=== PATIENT | male | born 1980 | race Two or more races ===

== ENCOUNTER 2023-04-07 01:40 | Emergency (ER) | payer MEDICAID ==
[~2023-04-07] VITALS: Ht 177.8 cm; Wt 61.0 kg
[2023-04-07 01:45] VITALS: TEMP 98.1
[2023-04-07] MEDS ORDERED: IOHEXOL 350 MG/ML 100 ML VIAL ONE (01:58)
[2023-04-07] MEDS ORDERED: SODIUM CHLORIDE 0.9% 100 ML ONE (01:58)
[2023-04-07] MEDS ORDERED: LABETALOL HCL 5 MG/ML 20 ML VIAL IVP PRN ×2 (02:00)
[2023-04-07 02:12] LABS: BASOPHILS % (AUTO) 0.9 % (0.0-2.0); EOSINOPHILS % (AUTO) 0.9 % (1.0-6.0); HEMATOCRIT 45.7 % (41-53); HEMOGLOBIN 15.9 g/dL (13.5-17.5); LYMPHOCYTES # (AUTO) 4.1 K/uL (1.0-4.8); LYMPHOCYTES % (AUTO) 50.6 % (22.0-44.0); MEAN CORPUSCULAR HEMOGLOBIN 34.2 pg (26.0-34.0); MEAN CORPUSCULAR HGB CONC 34.8 G/dL (31.0-37.0); MEAN CORPUSCULAR VOLUME 98 fL (80-100); MONOCYTES # (AUTO) 1.3 K/uL (0.1-1.0); MONOCYTES % (AUTO) 16.6 % (2.0-9.0); NEUTROPHILS # (AUTO) 2.5 K/uL (1.8-7.7); PLATELET COUNT (AUTO) 219 K/uL (150-450); RED BLOOD CELL COUNT(AUTO) 4.65 MIL/uL (4.50-5.90); RED CELL DISTRIBUTION WIDTH 12.6 % (11.5-14.5)
[2023-04-07 02:23] LABS: CALCIUM, TOTAL 8.7 mg/dL (8.8-10.5); CARBON DIOXIDE 27 mmol/L (22-29); CHLORIDE 100 mmol/L (98-107); CREATININE 0.63 mg/dL (0.60-1.30); GLOMERULAR FILTR. RATE CALC > 60 mL/min (>60); GLUCOSE,RANDOM 120 mg/dL (70-110); POTASSIUM 3.6 mmol/L (3.5-5.1); UREA NITROGEN, BLOOD 2 mg/dL (7-18)
[2023-04-07 02:24] LABS: PROTHROMBIN TIME 10.7 SEC (9.4-11.6)
[2023-04-07 02:29] LABS: ALANINE AMINOTRANSFERASE 66 U/L (12-78); ALBUMIN 3.5 g/dL (3.4-5.0); ALKALINE PHOSPHATASE 115 U/L (46-116); ANION GAP 17 mmol/L (8-16); ASPARTATE AMINOTRANSFERASE 100 U/L (15-37); BILIRUBIN,TOTAL 0.5 mg/dL (0.1-1.0); LIPASE 80 U/L (16-77); SODIUM SERUM 144 mmol/L (136-145); TOTAL PROTEIN, SERUM 7.3 g/dL (6.4-8.2)
[2023-04-07 02:31] LABS: TROPONIN I-HIGH SENSITIVITY 6 ng/L (<76)
[2023-04-07 02:35] LABS: ALCOHOL, BLOOD (SERUM) 355 mg/dL (0-10)
[2023-04-07 02:39] VITALS: BP 137/92; PULSE 73; RESP 16
[2023-04-07 04:10] LABS: APPEARANCE,URINE CLEAR (CLEAR); BILIRUBIN,URINE NEGATIVE (NEGATIVE); COLOR,URINE COLORLESS (YELLOW); GLUCOSE, URINE (UA) NEGATIVE (NEGATIVE); KETONES,URINE NEGATIVE (NEGATIVE); LEUKOCYTE ESTERASE ,URINE NEGATIVE (NEGATIVE); NITRATE,URINE NEGATIVE (NEGATIVE); OCCULT BLOOD,URINE NEGATIVE (NEGATIVE); PH,URINE 6.5 (5.0-8.0); PROTEIN,URINE NEGATIVE (NEGATIVE); SPECIFIC GRAVITIY, URINE 1.036 (1.003-1.030); UROBILINOGEN,URINE <=1.0 mg/dL (<=1.0)
[2023-04-07 04:11] LABS: PH,URINE DRUG SCREEN 6.5 (5.0-8.0)
[2023-04-07 04:17] LABS: AMPHET/METH SCREEN,URINE NEGATIVE (NEGATIVE); BARBITURATE SCREEN, URINE NEGATIVE (NEGATIVE); BENZODIAZEPINES SCREEN,URINE NEGATIVE (NEGATIVE); CANNABINOID SCREEN,URINE NEGATIVE (NEGATIVE); COCAINE SCREEN,URINE NEGATIVE (NEGATIVE); METHADONE SCREEN, URINE NEGATIVE (NEGATIVE); OPIATE SCREEN,URINE NEGATIVE (NEGATIVE); PHENCYCLIDINE SCREEN,URINE NEGATIVE (NEGATIVE)
[2023-04-07 04:23] LABS: BACTERIA,URINE None Seen /HPF (None Seen); RBC,URINE None Seen /HPF (0-2); SQUAMOUS EPITHELIAL CELL,UR None Seen /LPF (None Seen); WBC,URINE None Seen /HPF (0-5)
[2023-04-07 04:24] LABS: ALCOHOL, URINE DRUG SCREEN POSITIVE (NEGATIVE)
== END 2023-04-07 04:30 | disposition left against medical advice (07) ==
LOC: EMS 01:40
DX: K70.30 Alcoholic cirrhosis of liver without ascites (principal); F10.229 Alcohol dependence with intoxication, unspecified; R20.2 Paresthesia of skin; R20.0 Anesthesia of skin; F17.210 Nicotine dependence, cigarettes, uncomplicated; Y90.9 Presence of alcohol in blood, level not specified
CPT/HCPCS: 99285; 70496; 71045; 80053; 81001; 83690; 84484; 85025; 85610; 36415; 70498; 82948; 93005; 80307; 70450; Q9967; J7050; G0480

== ENCOUNTER 2024-10-02 14:24 | Inpatient (IN) | payer MEDICAID, OTHER ==
[~2024-10-02] VITALS: Ht 175.3 cm; Wt 70.0 kg
[2024-10-02] MEDS ORDERED: 0.9% SODIUM CHLORIDE 10 ML SYRINGE IVP PRN (14:45)
[2024-10-02 14:50] LABS: COVID AG,FIA SOURCE NASAL SWAB
[2024-10-02] MEDS: ONDANSETRON HCL 4 MG/2 ML VIAL IVP ONE (15:02)
[2024-10-02] MEDS: ACETAMINOPHEN 1000 MG/ISO-OSM 100 ML IV ONE (15:03)
[2024-10-02] MEDS: SODIUM CHLORIDE 0.9% 2,050 ML IV ONE (15:03)
[2024-10-02 15:05] LABS: BASOPHILS % (AUTO) 0.4 % (0.0-2.0); EOSINOPHILS % (AUTO) 0.1 % (1.0-6.0); HEMOGLOBIN 13.9 g/dL (13.5-17.5); LYMPHOCYTES # (AUTO) 1.1 K/uL (1.0-4.8); LYMPHOCYTES % (AUTO) 3.9 % (22.0-44.0); MEAN CORPUSCULAR HGB CONC 33.9 G/dL (31.0-37.0); MEAN CORPUSCULAR VOLUME 89 fL (80-100); MONOCYTES # (AUTO) 2.7 K/uL (0.1-1.0); MONOCYTES % (AUTO) 9.3 % (2.0-9.0); PLATELET COUNT (AUTO) 294 K/uL (150-450); RED BLOOD CELL COUNT(AUTO) 4.63 MIL/uL (4.50-5.90); RED CELL DISTRIBUTION WIDTH 13.2 % (11.5-14.5)
[2024-10-02 15:12] LABS: NEUTROPHILS % (AUTO) 86.3 % (40.0-70.0)
[2024-10-02 15:19] LABS: ANION GAP 9 mmol/L (8-16); CALCIUM, TOTAL 8.9 mg/dL (8.8-10.5); CARBON DIOXIDE 25 mmol/L (22-29); CHLORIDE 101 mmol/L (98-107); CREATININE 1.23 mg/dL (0.60-1.30); GLOMERULAR FILTR. RATE CALC > 60 mL/min (>60); GLUCOSE,RANDOM 119 mg/dL (70-110); POTASSIUM 3.8 mmol/L (3.5-5.1); SODIUM SERUM 135 mmol/L (136-145); UREA NITROGEN, BLOOD 7 mg/dL (7-18)
[2024-10-02 15:20] LABS: LIPASE 15 U/L (16-77)
[2024-10-02 15:21] LABS: ALBUMIN 2.9 g/dL (3.4-5.0); BILIRUBIN,DIRECT 0.3 mg/dL (0.00-0.20); BILIRUBIN,TOTAL 0.9 mg/dL (0.1-1.0); PROTHROMBIN TIME 11.3 SEC (9.4-11.6); TOTAL PROTEIN, SERUM 6.9 g/dL (6.4-8.2)
[2024-10-02 15:29] LABS: LACTIC ACID 1.5 mmol/L (0.4-2.0); RBC MORPHOLOGY COMMENT NORMAL RBC MORPH
[2024-10-02 15:35] LABS: INFLUENZA TYPE A NEGATIVE FOR TYPE A (NEGATIVE); INFLUENZA TYPE B NEGATIVE FOR TYPE B (NEGATIVE); SARS-COV2 (COVID) ANTIGEN,FIA Negative (Negative)
[2024-10-02] MEDS: CefTRIAXone 1 GM/DEXTROSE 50 ML IV ONE (15:48)
[2024-10-02 16:08] LABS: APPEARANCE,URINE HAZY (CLEAR); BILIRUBIN,URINE NEGATIVE (NEGATIVE); COLOR,URINE LIGHT ORANGE (YELLOW); GLUCOSE, URINE (UA) NEGATIVE (NEGATIVE); KETONES,URINE NEGATIVE (NEGATIVE); LEUKOCYTE ESTERASE ,URINE MODERATE (NEGATIVE); NITRATE,URINE NEGATIVE (NEGATIVE); OCCULT BLOOD,URINE TRACE (NEGATIVE); PH,URINE 5.5 (5.0-8.0); PROTEIN,URINE 30-70 mg/dL (NEGATIVE); SPECIFIC GRAVITIY, URINE 1.015 (1.003-1.030); UROBILINOGEN,URINE <=1.0 mg/dL (<=1.0)
[2024-10-02 16:16] LABS: BACTERIA,URINE Many /HPF (None Seen); SQUAMOUS EPITHELIAL CELL,UR Rare /LPF (None Seen); WBC,URINE 26-50 /HPF (0-5)
[2024-10-02] MEDS ORDERED: BISACODYL 10 MG RECTAL RECTAL SUPPOSITORY PR PRN (17:00)
[2024-10-02] MEDS ORDERED: MAGNESIUM HYDROXIDE SUSPENSION 30 ML UDCUP PO PRN (17:00)
[2024-10-02] MEDS ORDERED: ZOLPIDEM TARTRATE 5 MG TABLET PO PRN (17:00)
[2024-10-02] MEDS: *CLINICAL-LEVOFLOXACIN IVPB DOSING CLINICAL ONE (17:18)
[2024-10-02] MEDS: SODIUM CHLORIDE 0.9% 1,000 ML IV ONE (17:38)
[2024-10-02] MEDS: ACETAMINOPHEN 325 MG TABLET PO PRN (19:09)
[2024-10-02] MEDS: LEVOFLOXACIN 750 MG/D5% WATER 150 ML IV SCH (20:19)
[2024-10-02] MEDS: DOCUSATE SODIUM 100 MG CAPSULE PO SCH (20:38)
[2024-10-02] MEDS: MORPHINE SULFATE 2 MG/ML SYRINGE IVP PRN (21:37)
[2024-10-02] MEDS: HEPARIN SODIUM,PORCINE 5,000 UNITS/ML VIAL SQ SCH (23:06)
[2024-10-03] VITALS (8 sets, daily range): BP systolic 106–120; BP diastolic 64–79; PULSE 90–108; RESP 18–19; TEMP 98.8–102.8; O2SAT 95–98
[2024-10-03] MEDS: HYDROCODONE/ACETAMINOPHEN 5-325 MG TABLET PO PRN (01:42)
[2024-10-03 07:20] LABS: HEMATOCRIT 37.6 % (41-53); HEMOGLOBIN 12.7 g/dL (13.5-17.5); MEAN CORPUSCULAR HEMOGLOBIN 30.1 pg (26.0-34.0); MEAN CORPUSCULAR HGB CONC 33.9 G/dL (31.0-37.0); MEAN CORPUSCULAR VOLUME 89 fL (80-100); PLATELET COUNT (AUTO) 255 K/uL (150-450); RED BLOOD CELL COUNT(AUTO) 4.23 MIL/uL (4.50-5.90); RED CELL DISTRIBUTION WIDTH 13.4 % (11.5-14.5)
[2024-10-03 07:46] LABS: ANION GAP 10 mmol/L (8-16); CALCIUM, TOTAL 8.3 mg/dL (8.8-10.5); CARBON DIOXIDE 23 mmol/L (22-29); CHLORIDE 101 mmol/L (98-107); CREATININE 1.19 mg/dL (0.60-1.30); GLOMERULAR FILTR. RATE CALC > 60 mL/min (>60); GLUCOSE,RANDOM 111 mg/dL (70-110); SODIUM SERUM 134 mmol/L (136-145); UREA NITROGEN, BLOOD 7 mg/dL (7-18)
[2024-10-03 08:12] LABS: BAND NEUTROPHILS % (MANUAL) 9 % (0-5); LYMPHOCYTES % (MANUAL) 25 % (22-44); MONOCYTES % (MANUAL) 5 % (2-9); RBC MORPHOLOGY COMMENT NORMAL RBC MORPH; SEGMENTED NEUTROPHILS % 61 % (40-70); TOTAL CELLS COUNTED 100
[2024-10-03] MEDS: PANTOPRAZOLE SODIUM 40 MG DR TABLET PO SCH (09:10)
[2024-10-03] MEDS: SODIUM CHLORIDE 0.9% 1,000 ML IV ONE (12:27)
[2024-10-03] MEDS: ONDANSETRON HCL 4 MG/2 ML VIAL IVP PRN (12:27)
[2024-10-03] MEDS: CefTRIAXone 1 GM/DEXTROSE 50 ML IV SCH (14:57)
[2024-10-04 00:54] VITALS: BP 104/67; PULSE 66; RESP 19; TEMP 97.7; O2SAT 96
[2024-10-04 05:24] VITALS: BP 133/82; PULSE 100; RESP 19; TEMP 98; O2SAT 95
[2024-10-04 06:56] LABS: BASOPHILS % (AUTO) 0.7 % (0.0-2.0); EOSINOPHILS % (AUTO) 0.7 % (1.0-6.0); HEMATOCRIT 40.2 % (41-53); HEMOGLOBIN 13.4 g/dL (13.5-17.5); LYMPHOCYTES # (AUTO) 2.5 K/uL (1.0-4.8); LYMPHOCYTES % (AUTO) 11.8 % (22.0-44.0); MEAN CORPUSCULAR HEMOGLOBIN 29.7 pg (26.0-34.0); MEAN CORPUSCULAR HGB CONC 33.2 G/dL (31.0-37.0); MEAN CORPUSCULAR VOLUME 89 fL (80-100); MONOCYTES # (AUTO) 1.9 K/uL (0.1-1.0); MONOCYTES % (AUTO) 8.7 % (2.0-9.0); NEUTROPHILS # (AUTO) 16.8 K/uL (1.8-7.7); NEUTROPHILS % (AUTO) 78.1 % (40.0-70.0); PLATELET COUNT (AUTO) 277 K/uL (150-450); RED CELL DISTRIBUTION WIDTH 13.7 % (11.5-14.5); WHITE BLOOD COUNT (AUTO) 21.4 K/uL (4.5-11.0)
[2024-10-04 07:01] LABS: ANION GAP 7 mmol/L (8-16); CALCIUM, TOTAL 8.9 mg/dL (8.8-10.5); CARBON DIOXIDE 26 mmol/L (22-29); CHLORIDE 104 mmol/L (98-107); CREATININE 1.14 mg/dL (0.60-1.30); GLOMERULAR FILTR. RATE CALC > 60 mL/min (>60); GLUCOSE,RANDOM 93 mg/dL (70-110); POTASSIUM 4.2 mmol/L (3.5-5.1); SODIUM SERUM 137 mmol/L (136-145); UREA NITROGEN, BLOOD 10 mg/dL (7-18)
[2024-10-04 08:45] VITALS: BP 145/88; PULSE 86; RESP 18; TEMP 98.5; O2SAT 96
[2024-10-04 11:20] VITALS: BP 124/69; PULSE 73; RESP 17; TEMP 98.5; O2SAT 96
[2024-10-04] MEDS ORDERED: SODIUM CHLORIDE 0.9% 500 ML IV ONE (13:13)
[2024-10-04 20:12] VITALS: BP 119/72; PULSE 55; RESP 18; TEMP 98.6; O2SAT 97
[2024-10-04] MEDS ORDERED: SODIUM CHLORIDE 0.9% 250 ML IV ONE (20:13)
[2024-10-05 04:19] VITALS: BP 142/73; PULSE 68; RESP 18; TEMP 100.1; O2SAT 96
[2024-10-05 06:54] VITALS: TEMP 98.5
[2024-10-05 07:37] LABS: ANION GAP 10 mmol/L (8-16); CALCIUM, TOTAL 8.9 mg/dL (8.8-10.5); CARBON DIOXIDE 25 mmol/L (22-29); CHLORIDE 102 mmol/L (98-107); CREATININE 1.02 mg/dL (0.60-1.30); GLOMERULAR FILTR. RATE CALC > 60 mL/min (>60); GLUCOSE,RANDOM 107 mg/dL (70-110); POTASSIUM 3.8 mmol/L (3.5-5.1); SODIUM SERUM 137 mmol/L (136-145); UREA NITROGEN, BLOOD 6 mg/dL (7-18)
[2024-10-05 07:46] LABS: EOSINOPHILS % (AUTO) 0.5 % (1.0-6.0); HEMATOCRIT 36.7 % (41-53); HEMOGLOBIN 12.6 g/dL (13.5-17.5); LYMPHOCYTES # (AUTO) 2.2 K/uL (1.0-4.8); LYMPHOCYTES % (AUTO) 13.7 % (22.0-44.0); MEAN CORPUSCULAR HEMOGLOBIN 30.2 pg (26.0-34.0); MEAN CORPUSCULAR HGB CONC 34.4 G/dL (31.0-37.0); MEAN CORPUSCULAR VOLUME 88 fL (80-100); MONOCYTES % (AUTO) 12.4 % (2.0-9.0); NEUTROPHILS # (AUTO) 11.7 K/uL (1.8-7.7); NEUTROPHILS % (AUTO) 72.4 % (40.0-70.0); PLATELET COUNT (AUTO) 313 K/uL (150-450); RED BLOOD CELL COUNT(AUTO) 4.19 MIL/uL (4.50-5.90); RED CELL DISTRIBUTION WIDTH 13.7 % (11.5-14.5); WHITE BLOOD COUNT (AUTO) 16.2 K/uL (4.5-11.0)
[2024-10-05 08:00] VITALS: BP_SYST 107; BP_SYST 120; BP_DIAS 57; BP_DIAS 71; PULSE 65; PULSE 86; RESP 18; TEMP 98.4; O2SAT 96
[2024-10-05] MEDS ORDERED: CIPR250T6 PO (10:12)
== END 2024-10-05 15:42 | disposition home or self-care (01) | DRG 720 ==
LOC: EMS 14:29 → EDH 16:59 → EDBEDREQ 17:22 → 5S 10-03 01:09 → 6S 10-04 16:46
PROVIDERS: ADMIT Internal Medicine; ATTEND Internal Medicine
DX: A41.9 Sepsis, unspecified organism (principal); F10.20 Alcohol dependence, uncomplicated; N39.0 Urinary tract infection, site not specified; B96.20 Unspecified Escherichia coli [E. coli] as the cause of diseases classified elsewhere; Z87.891 Personal history of nicotine dependence; Z20.822 Contact with and (suspected) exposure to COVID-19
CPT/HCPCS: 71045; 74176; 80048; 80076; 81001; 83605; 83690; 84145; 85025; 85610; 87040; 87077; 87086; 87186; 87804; 93005; 96361; 96365; 96368; 99291; G0378; J0131; J0696; J1644; J1956; J2270; J2405; J7030; J7040; J7050; 36415-L1; 36415-TC